=== PATIENT | male | born 1975 ===

== ENCOUNTER 2017-02-02 09:35 | Emergency (ER) | payer OTHER ==
[2017-02-02 09:50] VITALS: BP 131/85; PULSE 78; TEMP 100
[2017-02-02 09:52] VITALS: BMI 28.5
--- NOTE | 2017-02-02 10:02 | ED PDOC ---
HPI: General Adult Time Seen by Provider: 02/02/17 09:57 Chief Complaint (Provider): left knee pain History Per: Patient History/Exam Limitations: no limitations Additional Complaint(s): 41yo male comes to the ED complaining of left knee pain for 2 days. States he was on his knees 2 days ago but does not recall any twisting motion or trauma. Patient denies fever. Past Medical History Reviewed: Historical Data, Nursing Documentation, Vital Signs Vital Signs: Last Vital Signs Temp 100 F H 02/02/17 10:14 Pulse 78 02/02/17 10:14 Resp 18 02/02/17 10:14 BP 131/85 02/02/17 10:14 Pulse Ox 98 02/02/17 10:29 - Medical History PMH: No Chronic Diseases - Surgical History Surgical History: No Surg Hx - Family History Family History: States: Unknown Family Hx - Home Medications Home Medications: Ambulatory Orders Medication Instructions Recorded Naproxen [Naprosyn] 500 mg PO Q12H #20 tab 02/02/17 - Allergies Allergies/Adverse Reactions: Allergies Allergy/AdvReac Type Severity Reaction Status Date / Time No Known Allergies Allergy Verified 02/02/17 10:14 Review of Systems ROS Statement: Except As Marked, All Systems Reviewed And Found Negative Constitutional: Negative for: Fever Musculoskeletal: Positive for: Other (knee pain) Physical Exam - Reviewed Nursing Documentation Reviewed: Yes Vital Signs Reviewed: Yes - Physical Exam Appears: Positive for: Well, Non-toxic, No Acute Distress Head Exam: Positive for: ATRAUMATIC, NORMAL INSPECTION, NORMOCEPHALIC Skin: Positive for: Warm, Dry Eye Exam: Positive for: EOMI, PERRL Extremity: Positive for: Other (mild suprapatellar swelling and tenderness. No deformity, crepitus, instability.) Neurologic/Psych: Positive for: Alert, Oriented - ECG O2 Sat by Pulse Oximetry: 98 (RA) Pulse Ox Interpretation: Normal Medical Decision Making Medical Decision Makin: XR ordered. Disposition - Clinical Impression Clinical Impression: Knee bursitis - Patient ED Disposition Is Patient to be Admitted: No Counseled Patient/Family Regarding: Studies Performed, Diagnosis, Need For Followup, Rx Given - Disposition Referrals: Coty Bangura MD [Staff Provider] - Disposition: Routine/Home Disposition Time: 11:48 Condition: FAIR Prescriptions: Naproxen [Naprosyn] 500 mg PO Q12H #20 tab Instructions: Knee Bursitis (ED), Knee Sprain (ED) Print Language: GREENLANDIC Additional Comments - Additional Comments Additional Comments: Documented by Kane Rosenthal acting as a scribe for Socrates Gaviria MD. All medical record entries made by the Scribe were at my direction and personally dictated by me. I have reviewed the chart and agree that the record accurately reflects my personal performance of the history, physical exam, medical decision making, and the department course for this patient. I have also personally directed, reviewed, and agree with the discharge instructions and disposition.
[2017-02-02 10:16] VITALS: RESP 18
[2017-02-02 10:22] VITALS: O2SAT 98
[2017-02-02] MEDS ORDERED: Naproxen 500 MG TAB PO ONE (10:29)
[2017-02-02] MEDS ORDERED: Naproxen 500 MG TAB PO STA (10:38)
--- NOTE | 2017-02-02 14:27 | RAD ---
PROCEDURE: Bilateral Knee Radiographs. HISTORY: pain and swelling COMPARISON: None. FINDINGS: BONES: Right Knee: Normal. No fracture. Left Knee: Normal. No fracture. JOINTS: Right Knee: Normal. No osteoarthritis. No loose bodies identified. Left knee: Normal. No osteoarthritis. No loose bodies identified. SOFT TISSUES: Right Knee: Normal. Left Knee: Normal. JOINT EFFUSION: Right Knee: None. Left Knee: Large unilateral, left suprapatellar joint effusion. OTHER FINDINGS: None. IMPRESSION: Large suprapatellar joint effusion unilateral-left.
== END 2017-02-02 13:05 | disposition home or self-care (01) ==
LOC: H.ER 09:35
DX: M70.52 Other bursitis of knee, left knee (principal)